=== PATIENT | male | born 1980 | race Two or more races ===

== ENCOUNTER 2016-12-07 00:32 | Emergency (ER) | payer OTHER ==
[~2016-12-07] VITALS: Ht 157.5 cm; Wt 72.6 kg
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
--- NOTE | 2016-12-07 00:45 | NUR ---
Pt to CT via stretcher
--- NOTE | 2016-12-07 01:15 | NUR ---
Back from CT
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
[2016-12-07 02:35] LABS: BASOPHIL # 0.1 10^3/uL (0.0-0.1); BASOPHIL % 0.5 % (0.0-0.2); EOSINOPHIL # 0.1 10^3/uL (0.0-0.2); EOSINOPHIL % 1.3 % (0.0-5.0); HEMOGLOBIN 15.1 g/dL (13.9-16.3); LYMPHOCYTES # 2.1 10^3/uL (1.0-4.8); LYMPHOCYTES % 18.6 % (24.0-44.0); MEAN CELL HGB 31.5 pg (26-34); MEAN CELL HGB CONCENTRATION 36.6 g/dL (33-37); MEAN CORP VOLUME 86.2 fL (78-100); MEAN PLATELET VOLUME 9.8 fL (7.8-11.0); MONOCYTES # 0.6 10^3/uL (0.3-0.8); MONOCYTES % 5.8 % (5.0-12.0); NEUTROPHIL # 8.1 10^3/uL (1.8-7.7); NEUTROPHILS % 73.8 % (41.0-85.0); PLATELET COUNT 189 10^3/uL (150-400); RED CELL DISTRIBUTION WIDTH 12.6 % (11.5-14.5)
[2016-12-07 02:36] LABS: CALCIUM 9.3 mg/dL (8.4-10.5)
[2016-12-07] MEDS ORDERED: MORPHINE SULFATE ONE (02:54)
--- NOTE | 2016-12-07 02:55 | NUR ---
Verbal order for Morphine 2mg IV by Dr. Venegas.
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
[2016-12-07 02:57] LABS: BILIRUBIN,URINE NEGATIVE (NEGATIVE); UROBILINOGEN,URINE NORMAL (NEGATIVE)
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
--- NOTE | 2016-12-07 03:05 | NUR ---
UA pt voided 600ml clear yellow urine. Sample taken to lab.
[2016-12-07 03:09] LABS: APPEARANCE,URINE CLEAR (CLEAR); UA COLOR YELLOW (YELLOW)
[2016-12-07 03:10] LABS: WBC,URINE NONE SEEN WBC/HPF (0-2)
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
--- NOTE | 2016-12-07 05:00 | NUR ---
Report to [facility] Report given to Rito PARTIDA.
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
== END 2016-12-07 04:20 | disposition other institution (70) ==
LOC: ER 00:32
DX: S41.111A Laceration without foreign body of right upper arm, initial encounter (principal); S22.49XA Multiple fractures of ribs, unspecified side, initial encounter for closed fracture; S00.93XA Contusion of unspecified part of head, initial encounter; V89.2XXA Person injured in unspecified motor-vehicle accident, traffic, initial encounter; Y93.89 Activity, other specified; Y92.89 Other specified places as the place of occurrence of the external cause; Y99.8 Other external cause status
CPT/HCPCS: 36415; 70450; 71260; 72125; 72128; 73030; 73110; 73130; 74177; 80048; 81000; 85025; 85610; 85660; 85730; 96374; 99285; G0481; Q9967; J2270